=== PATIENT | male | born 1955 | race Caucasian/White ===

== ENCOUNTER 2021-02-12 10:47 | Outpatient (CLI) | payer BC, SELFPAY | END 2021-02-12 10:48 | disposition home or self-care (01) | LOC: ANHCOVIDVC 10:47 | PROVIDERS: PCP Family Medicine | DX: Z23 Encounter for immunization (principal) | CPT/HCPCS: 0001A; 91300 ==

== ENCOUNTER 2021-03-05 10:44 | Outpatient (CLI) | payer BC, SELFPAY | END 2021-03-05 10:45 | disposition home or self-care (01) | LOC: ANHCOVIDVC 10:44 | PROVIDERS: PCP Family Medicine | DX: Z23 Encounter for immunization (principal) | CPT/HCPCS: 0002A; 91300 ==